=== PATIENT | female | born 1950 | race Caucasian/White ===

== ENCOUNTER 2017-11-11 17:55 | Emergency (ER) | payer OTHER ==
--- NOTE | 2017-11-11 18:15 | PDOC ---
History of Present Illness - General History Source: Patient Exam Limitations: No Limitations - History of Present Illness Initial Comments: 11/11/17 18:51 The patien is a 67 year old female with history of hypertension, arrythmias, on Metoprolol, who presents to the ED complaining of palpitations, generalized weakness, and nausea that began this evening while shoveling snow. No chest pain or shortness of breath. No vomiting or diaphoresis. 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) - Immunization History Td Vaccination: No (UNKNOWN) - Suicide/Smoking/Psychosocial Hx Smoking Status: No Smoking History: Never smoked Number of Cigarettes Smoked Daily: 0 Hx Alcohol Use: No Drug/Substance Use Hx: No Substance Use Type: None Hx Substance Use Treatment: No <Angelica Arambula - Last Filed: 11/11/17 23:47> - Past Medical History Allergies/Adverse Reactions: Allergies Allergy/AdvReac Type Severity Reaction Status Date / Time No Known Allergies Allergy Verified 11/11/17 18:22 Home Medications: Ambulatory Orders Metoprolol Succinate [Toprol XL] 50 mg PO BID 12/16/12 Review of Systems - Review of Systems Able to Perform ROS?: Yes Comments:: 11/11/17 18:54 GENERAL/CONSTITUTIONAL: +Generalized weakness. No fever or chills. HEAD, EYES, EARS, NOSE AND THROAT: No change in vision. No ear pain or discharge. No sore throat. GASTROINTESTINAL: +Nausea. No abdominal pain, vomiting, diarrhea or constipation. GENITOURINARY: No dysuria, frequency, or change in urination. CARDIOVASCULAR: +Palpitations. No chest pain or shortness of breath. RESPIRATORY: No cough, wheezing, or hemoptysis. MUSCULOSKELETAL: No joint or muscle swelling or pain. No neck or back pain. SKIN: No rash NEUROLOGIC: No headache, vertigo, loss of consciousness, or change in strength/ sensation. ENDOCRINE: No increased thirst. No abnormal weight change. HEMATOLOGIC/LYMPHATIC: No anemia, easy bleeding, or history of blood clots. ALLERGIC/IMMUNOLOGIC: No hives or skin allergy. <Tara Luke - Last Filed: 11/11/17 18:54> *Physical Exam - Vital Signs Last Vital Signs Temp Pulse Resp BP Pulse Ox 97.4 F L 57 L 18 150/88 99 11/11/17 18:22 11/11/17 18:22 11/11/17 18:22 11/11/17 18:22 11/11/17 18:22 - Physical Exam Comments: 11/11/17 18:56 Constitutional: Awake, alert, oriented. No acute distress. Head: Normocephalic. Atraumatic Eyes: PERRL. EOMI. Conjunctivae are not pale. ENT: Mucous membranes are moist and intact. Posterior pharynx without exudates or erythema. Uvula midline. Neck: Supple. Full ROM. No lymphadenopathy. Cardiovascular: +Arrhythmia. Distal pulses are 2+ and symmetric. Pulmonary/Chest: No evidence of respiratory distress. Clear to auscultation bilaterally No wheezing, rales or rhonchi. Abdominal: Soft and non-distended. There is no tenderness. No rebound, guarding or rigidity. No organomegaly. No palpable masses. Good bowel sounds. Back: No CVA tenderness. Musculoskeletal: No edema. No cyanosis. No clubbing. Full range of motion in all extremities. Nocalf tenderness. Radial/pedal pulses are intact and 2+ bilaterally Skin: Skin is warm and dry. No petechiae. No purpura. Neurological: Alert and oriented to person, place, and time. Cranial nerves II -XII are grossly intact. Normal speech. Strength is grossly symmetric. No sensory deficits. Psychiatric: Good eye contact. Normal interaction, affect and behavior. <Tara Luke - Last Filed: 11/11/17 18:54> Heart Score/ECG Review - ECG Intrepretation Comment:: 11/11/17 19:41 sinus arrhythmia at 79, nl axis, no acute st/t wave findings <Angelica Arambula - Last Filed: 11/11/17 23:47> ED Treatment Course - LABORATORY CBC & Chemistry Diagram: 11/11/17 18:34 11/11/17 18:34 <Tara Luke - Last Filed: 11/11/17 18:54> - LABORATORY CBC & Chemistry Diagram: 11/11/17 18:34 11/11/17 18:34 <Angelica Arambula - Last Filed: 11/11/17 23:47> Medical Decision Making - Medical Decision Making 11/11/17 19:10 a/p: 67yo female with palpitations -hx of arrhythmia that felt worse while shoveling snow -will check labs, electrolytes, tsh, cardiac enzymes x 2 -ekg -cxr -pt currently asymptomatic 11/11/17 21:13 pt feeling better no symptoms since earlier. will continue to monitor and reassess pt tolerated po intake in the ed 11/11/17 23:44 pt feeling at baseline. repeat trop negative tele has been sinus arrhythmia without acute findings will d/c to home to follow up with Dr. Wilkes <Angelica Arambula - Last Filed: 11/11/17 23:47> *DC/Admit/Observation/Transfer - Attestations Scribe Attestion: 11/11/17 18:57 Documentation prepared by Tara Luke, acting as ophthalmic medical assistant for Angelica Arambula DO. <Tara Luke - Last Filed: 11/11/17 18:54> - Discharge Dispostion Admit: No - Attestations Physician Attestion: 11/11/17 23:47 I, Dr. Angelica Arambula DO, attest that this document has been prepared under my direction and personally reviewed by me in its entirety. I further attest, that it accurately reflects all work, treatment, procedures and medical decision -making performed by me. <Angelica Arambula - Last Filed: 11/11/17 23:47> Diagnosis at time of Disposition: Palpitations - Discharge Dispostion Disposition: HOME Condition at time of disposition: Stable - Referrals Referrals: Harish Page MD [Primary Care Provider] - John Wilkes MD [Staff Physician] - - Patient Instructions Printed Discharge Instructions: DI for Palpitations, DI for Arrhythmias Additional Instructions: Please take all meds as prescribed. Please call your sponsorship manager in the morning to arrange for follow up. Please return to the ED with any further complaints. Please also follow up with your PMD. - Post Discharge Activity
[2017-11-11 18:26] VITALS: TEMP 97.4; BMI 19.7
[2017-11-11 18:48] LABS: BASO % 0.9 % (0-2.0); EOS % 5.3 % (0-4.5); HEMATOCRIT 37.4 % (32.4-45.2); HEMOGLOBIN 12.4 GM/dL (10.7-15.3); LYMPH % 26.7 % (8-40); MCH 30.8 pg (25.7-33.7); MCHC 33.2 g/dl (32.0-36.0); MEAN CELL VOLUME 92.7 fl (80-96); MEAN PLT VOLUME 8.6 fl (7.5-11.1); MONO % 7.5 % (3.8-10.2); NEUT % 59.6 % (42.8-82.8); PLATELET COUNT 245 K/MM3 (134-434); RBC 4.04 M/mm3 (3.60-5.2); RDW 12.7 % (11.6-15.6); WHITE BLOOD COUNT 5.7 K/mm3 (4.0-10.0)
[2017-11-11 19:03] LABS: INR 0.96 (0.82-1.09); PROTHROMBIN TIME (PATIENT) 10.9 SEC (9.98-11.88)
[2017-11-11 19:05] LABS: ACTIVATED PTT 29.1 SECONDS (26.9-34.4)
[2017-11-11 19:17] LABS: ALBUMIN 3.6 g/dl (3.4-5.0); ANION GAP 6 (8-16); BILIRUBIN,TOTAL 0.2 mg/dL (0.2-1.0); BLOOD UREA NITROGEN 17 mg/dL (7-18); CALCIUM 8.6 mg/dL (8.5-10.1); CHLORIDE 102 mmol/L (98-107); CO2 29 mmol/L (21-32); CREATININE 0.7 mg/dL (0.55-1.02); GLUCOSE,RANDOM 99 mg/dL (74-106); MAGNESIUM 2.5 mg/dL (1.8-2.4); SGOT/AST 22 U/L (15-37); SGPT/ALT 28 U/L (12-78); SODIUM 137 mmol/L (136-145); TOT PROT 7.3 g/dl (6.4-8.2)
[2017-11-11 19:20] LABS: ALK PHOS 84 U/L (45-117)
[2017-11-11 19:36] LABS: N-TERMINAL BNP 118.65 pg/ml (5-125)
[2017-11-11 21:38] VITALS: BP 128/63; PULSE 77
--- NOTE | 2017-11-12 10:26 | EKG ---
Test Reason : Blood Pressure : / mmHG Vent. Rate : 079 BPM Atrial Rate : 079 BPM P-R Int : 146 ms QRS Dur : 080 ms QT Int : 362 ms P-R-T Axes : 045 049 052 degrees QTc Int : 415 ms SINUS RHYTHM WITH MARKED SINUS ARRHYTHMIA WHEN COMPARED WITH ECG OF 12-APR-2013 11:43, NO SIGNIFICANT CHANGE WAS FOUND Confirmed by DOMINICK MOTTA MD ([id number]) on 11/12/2017 10:25:58 AM Referred By: Confirmed By:DOMINICK MOTTA MD
== END 2017-11-12 00:04 | disposition home or self-care (01) ==
LOC: JER 17:55
DX: I49.9 Cardiac arrhythmia, unspecified (principal); R00.2 Palpitations; I10 Essential (primary) hypertension
CPT/HCPCS: 36415; 71046-TC; 80053; 82550; 83735; 83880; 84439; 84443; 84484; 85025; 85610; 85730; 93005; 93010; 99284-25

== ENCOUNTER 2020-01-08 19:49 | Inpatient (IN) | payer OTHER, MEDICARE ==
--- NOTE | 2020-01-08 20:34 | PDOC ---
Documentation entered by Michelle Lara SCRIBE, acting as scribe for Christa Petersen MD. Christa Petersen MD: This documentation has been prepared by the Marco sheridan Xhesika, SCRIBE, under my direction and personally reviewed by me in its entirety. I confirm that the documentation accurately reflects all work, treatment, procedures, and medical decision making performed by me. History of Present Illness - General Chief Complaint: Chest Pain Stated Complaint: CHEST PAIN Time Seen by Provider: 01/08/20 19:58 History Source: Patient Exam Limitations: No Limitations - History of Present Illness Initial Comments: 01/08/20 20:24 The patient is a 69 y/o female with a PMH of htn, SVT, sinus arrhythmia, mvp, ablation 2 years ago who presents to the ED for intermittent L sided chest pain. The patient describes the pain as sharp, jabbing pain, lasting anywhere between a few seconds to 1-2 minutes, associated with hot flashes. Pt states her father from a OR at age 4747 years old. The patient denies any smoking history. PAST MEDICAL HISTORY: htn, SVT, sinus arrhythmia, mvp PAST SURGICAL HISTORY: no significant history FAMILY HISTORY: no pertinent history SOCIAL HISTORY: Pt lives with family and is employed. MEDICATIONS: reviewed ALLERGIES: As per nursing notes 01/08/20 20:32 Assessment and plan: This is a 69-year-old female with multiple cardiac risk factors including mitral valve prolapse hypertension, high cholesterol, strong family history who comes in complaining of intermittent left-sided chest pain with some questionable associated hot flash. Otherwise no associated symptoms. Patient said pain is brief is sharp and lasts less than 2 minutes. Patient does appear to be quite anxious however given her multiple risk factors and the fact she has not had a cardiac work-up in a year and a half last work-up was a cardiac cath in July 2018. Patient said cardiac cath showed less than 20% blockage of any vessels I will bring patient in to rule her out. Past History - Past Medical History Allergies/Adverse Reactions: Allergies Allergy/AdvReac Type Severity Reaction Status Date / Time No Known Allergies Allergy Verified 01/08/20 19:50 Home Medications: Ambulatory Orders Aspirin [Aspirin EC] 81 mg PO DAILY 01/08/20 Atorvastatin Ca [Lipitor] 40 mg PO HS 01/08/20 Cholecalciferol (Vitamin D3) [Vitamin D3] 1,000 unit PO DAILY 01/08/20 Hydrochlorothiazide [Hctz -] 25 mg PO DAILY 01/08/20 Metoprolol Tartrate [Lopressor] 100 mg PO HS 01/08/20 Olmesartan Medoxomil 20 mg PO DAILY 01/08/20 Ubidecarenone [Coq10] 100 mg PO DAILY 01/08/20 Cardiac Disorders: Yes (MVP, "cardiac arrhythemia") COPD: No Disorders: Yes (incontinence (post spinal surgery)) HTN: Yes Hypercholesterolemia: Yes - Surgical History Cardiac Surgery: Yes (Cath (May 2018), no stenting) Neurologic Surgery: Yes (Spinal tumor removed (1999)) Orthopedic Surgery: Yes (Right foot (screws/rods placed)) - Immunization History Td Vaccination: No (UNKNOWN) Immunization Up to Date: Yes - Psycho Social/Smoking Cessation Hx Smoking Status: No Smoking History: Never smoked Have you smoked in the past 12 months: No Number of Cigarettes Smoked Daily: 0 Hx Alcohol Use: No Drug/Substance Use Hx: No Substance Use Type: None Hx Substance Use Treatment: No Review of Systems - Review of Systems Able to Perform ROS?: Yes Comments:: 01/08/20 20:24 General: No fevers or chills, no weakness, no weight loss HEENT: No change in vision. No sore throat,. No ear pain CardioVascular: +L sided chest pain. No shortness of breath Respiratory:No cough, or wheezing. Gastrointestinal: no nausea, vomiting, diarrhea or constipation, No rectal bleeding Genitourinary: No dysuria, hematuria, or frequency Musculoskeletal: No joint or muscle pain or swelling Neurologic: No headache, vertigo, dizziness or loss of consciousness Psychiatric: nor depression Skin: No rashes or easy bruising Endocrine: no increased thirst or abnormal weight change Allergic: no skin or latex allergy All other systems reviewed and normal *Physical Exam - Vital Signs Last Vital Signs Temp Pulse Resp BP Pulse Ox 98.1 F 69 16 144/53 L 99 01/08/20 19:49 01/08/20 20:35 01/08/20 20:35 01/08/20 20:35 01/08/20 20:35 - Physical Exam 01/08/20 20:25 General: Well-nourished well-developed individual, no acute distress. +anxious appearing. HEENT: Throat: Normal, tonsils normal, no erythema or exudate Neck: Supple, no meningeal signs, no lymphadenopathy Eyes::Pupils equal reactive and round, extraocular motion intact Chest: +MVP murmur Cardiac: S1-S2 normal, regular rate and rhythm, no murmurs rubs or gallops Respiratory: Lungs clear to auscultation bilateral Abdomen: Soft, nondistended, normal bowel sounds, nontender to palpation diffusely Extremities: Warm, dry, no cyanosis, clubbing, or edema Skin: No rashes Neuro: Alert and oriented x3, nonfocal exam, grossly intact Psych: Normal mood and affect Heart Score/ECG Review - History History: Slightly suspicious - Electrocardiogram EKG: Normal - Age Age: >/= 65 - Risk Factors Based on the list above the patient has:: >/=3 risk factors or Hx atherosclerotic disease - Troponin Troponin: </= normal limit - Score Heart Score - Total: 4 ED Treatment Course - LABORATORY CBC & Chemistry Diagram: 01/08/20 20:25 01/08/20 20:25 - ADDITIONAL ORDERS Additional order review: Laboratory Results 01/08/20 01/08/20 20:25 20:25 Sodium 129 L Potassium 3.9 Chloride 91 L Carbon Dioxide 27 Anion Gap 11 BUN 26.0 H Creatinine 0.9 Est GFR (CKD-EPI)AfAm 76.14 Est GFR (CKD-EPI)NonAf 65.70 Random Glucose 137 H Calcium 9.4 Total Bilirubin 0.3 AST 26 ALT 20 Alkaline Phosphatase 90 Creatine Kinase 91 Troponin I < 0.03 Total Protein 7.1 Albumin 4.0 - RADIOLOGY Radiology Studies Ordered: Category Date Time Status CHEST X-RAY PORTABLE* [RAD] Stat Radiology 01/08/20 20:25 Taken Discharge - Discharge Information Problems reviewed: Yes Clinical Impression/Diagnosis: Chest pain Condition: Guarded Disposition: HOME - Admission Yes - Follow up/Referral Referrals: Tahir Nelson MD [Primary Care Provider] - - Patient Discharge Instructions - Post Discharge Activity
[2020-01-08 21:22] LABS: BILIRUBIN,TOTAL 0.3 mg/dl (0.2-1); CALCIUM 9.4 mg/dl (8.5-10); CREATININE 0.9 mg/dl (0.55-1.3); POTASSIUM 3.9 mmol/L (3.5-5.1); TOT PROT 7.1 g/dl (6.4-8.2)
[2020-01-08] MEDS ORDERED: ASPIRIN 325 MG TABLET PO ONE (22:10)
[2020-01-08] MEDS ORDERED: ASPIRIN 325 MG TABLET ONE (22:15)
[2020-01-08 22:16] LABS: BASO % 0.9 % (0-2.0); EOS % 7.2 % (0-4.5); HEMATOCRIT 35.1 % (32.4-45.2); HEMOGLOBIN 11.7 GM/dl (10.7-15.3); LYMPH % 34.9 % (8-40); MCH 30.7 pg (25.7-33.7); MCHC 33.4 g/dl (32.0-36.0); MEAN CELL VOLUME 91.8 fl (80-96); MEAN PLT VOLUME 9.6 fl (7.5-11.1); MONO % 7.9 % (3.8-10.2); NEUT % 49.1 % (42.8-82.8); PLATELET COUNT 203 K/MM3 (134-434); RBC 3.83 M/mm3 (3.60-5.2); RDW 12.4 % (11.6-15.6); WHITE BLOOD COUNT 6.4 K/mm3 (4.0-10.8)
[2020-01-08 22:17] LABS: ADD RBC MORPHOLOGY NO
--- NOTE | 2020-01-08 22:23 | HP ---
Admitting History and Physical - Primary Care Physician PCP: Tahir Nelson - Admission Chief Complaint: Chest Pain History of Present Illness: This is a 69 y/o female with a PMHx of HTN, SVT, Sinus Arrhythmia, MVP, s/p ablation (05/2018). Who presents to the ED with left sided chest pain. Patient describes the pain as sharp and jabbing, radiating to left axilla lasting between 1-2 minutes with associated hot flashes. Patient reports being at the [facility] office last Wednesday for elevated BP. Patient denies fever, chills , cough, BECKHAM, dizziness, SOB, AP, N/V/D. constipation. Patient has cardiac familial hx- father, [place]. ED course was noted for: (1) Chest Xray image- no infiltrate no effusion (2) EKG- NSR 64bpm, QT/QTc 398/410 (3) Troponin 0.03 (4) Na 129 History Source: Patient Limitations to Obtaining History: No Limitations - Past Medical History Cardiovascular: Yes: HTN, Mitral Insufficiency (MVP), Other (svt) - Past Surgical History Additional Past Surgical History: Cardiac Ablation - Smoking History Smoking history: Never smoked Have you smoked in the past 12 months: No Aproximately how many cigarettes per day: 0 - Alcohol/Substance Use Hx Alcohol Use: No History of Substance Use: reports: None - Social History Usual Living Arrangement: Yes: Other (Brother) ADL: Independent History of Recent Travel: No Home Medications - Allergies Allergies/Adverse Reactions: Allergies Allergy/AdvReac Type Severity Reaction Status Date / Time No Known Allergies Allergy Verified 01/08/20 19:50 - Home Medications Home Medications: Ambulatory Orders Aspirin [Aspirin EC] 81 mg PO DAILY 01/08/20 Atorvastatin Ca [Lipitor] 40 mg PO HS 01/08/20 Cholecalciferol (Vitamin D3) [Vitamin D3] 1,000 unit PO DAILY 01/08/20 Hydrochlorothiazide [Hctz -] 25 mg PO DAILY 01/08/20 Metoprolol Tartrate [Lopressor] 100 mg PO HS 01/08/20 Olmesartan Medoxomil 20 mg PO DAILY 01/08/20 Ubidecarenone [Coq10] 100 mg PO DAILY 01/08/20 Family Medical History Family Hx Coronary Artery Disease: Father ([place], age 47) Review of Systems - Review of Systems Constitutional: reports: No Symptoms Eyes: reports: No Symptoms HENT: reports: No Symptoms Neck: reports: No Symptoms Cardiovascular: reports: Chest Pain, Palpitations Respiratory: reports: No Symptoms Gastrointestinal: reports: No Symptoms Genitourinary: reports: No Symptoms Breasts: reports: No Symptoms Reported Integumentary: reports: No Symptoms Neurological: reports: No Symptoms Endocrine: reports: No Symptoms Hematology/Lymphatic: reports: No Symptoms Psychiatric: reports: Anxiety Pain Intensity: 4 Physical Examination Vital Signs: Vital Signs Temperature 98.1 F 01/08/20 19:49 Pulse Rate 68 01/08/20 22:18 Respiratory Rate 17 01/08/20 22:18 Blood Pressure 129/92 01/08/20 22:18 O2 Sat by Pulse Oximetry (%) 100 01/08/20 22:18 Constitutional: Yes: Anxious, Thin Eyes: Yes: WNL, Conjunctiva Clear, EOM Intact HENT: Yes: WNL, Atraumatic, Normocephalic Neck: Yes: WNL, Supple, Trachea Midline Cardiovascular: Yes: Regular Rate and Rhythm, Murmur, S1, S2 Respiratory: Yes: WNL, Regular, CTA Bilaterally Gastrointestinal: Yes: WNL, Normal Bowel Sounds, Soft ...Rectal Exam: Yes: Deferred Breast(s): Yes: WNL Musculoskeletal: Yes: WNL Edema: No Peripheral Pulses WNL: Yes Neurological: Yes: Alert, Oriented, Pre-Existing Deficit ...Motor Strength: LUE, RUE Psychiatric: Yes: WNL, Alert, Oriented Labs: CBC, BMP 01/08/20 20:25 01/08/20 20:25 Laboratory Results - last 24 hr 01/08/20 01/08/20 01/08/20 20:25 20:25 20:25 WBC 6.4 Corrected WBC (auto) 6.40 RBC 3.83 Hgb 11.7 Hct 35.1 MCV 91.8 MCH 30.7 MCHC 33.4 RDW 12.4 Plt Count 203 MPV 9.6 Absolute Neuts (auto) 3.2 Neutrophils % 49.1 Lymphocytes % 34.9 Monocytes % 7.9 Eosinophils % 7.2 H Basophils % 0.9 Sodium 129 L Potassium 3.9 Chloride 91 L Carbon Dioxide 27 Anion Gap 11 BUN 26.0 H Creatinine 0.9 Est GFR (CKD-EPI)AfAm 76.14 Est GFR (CKD-EPI)NonAf 65.70 Random Glucose 137 H Calcium 9.4 Total Bilirubin 0.3 AST 26 ALT 20 Alkaline Phosphatase 90 Creatine Kinase 91 Troponin I < 0.03 Total Protein 7.1 Albumin 4.0 Urine Color Urine Appearance Urine pH Ur Specific [place] Urine Protein Urine Glucose (UA) Urine Ketones Urine Blood Urine Nitrite Urine Bilirubin Urine Urobilinogen Ur Leukocyte Esterase Urine WBC (Auto) Urine RBC (Auto) Urine Casts (Auto) U Epithel Cells (Auto) Urine Bacteria (Auto) Intake & Output 01/06/20 01/07/20 01/08/20 01/09/20 23:59 23:59 23:59 23:59 Weight 52.277 kg Imaging - Results Chest X-ray: Image Reviewed EKG: Image Reviewed Problem List - Problems (1) Chest pain Assessment/Plan: r/o ACS HEART Score 4 MELISSA 3 Continue cardiac monitoring Serial Enzymes EKG reviewed Appreciate Cardiology consult Echo in am Continue Asa Code(s): R07.9 - CHEST PAIN, UNSPECIFIED (2) Hyponatremia Assessment/Plan: Likely secondary to medication vs dehydration vs SIADH NS fluids initiated in ED, will decrease to 42ml/hr Sodium Deficit 309.1 Monitor BMP Urine Osmo, Urine lytes, Na Spot, Serum Osmo Goal sodium correction of 6-8meq/24hrs Monitor vitals Consider Nephrology consult if no improvement Code(s): E87.1 - HYPO-OSMOLALITY AND HYPONATREMIA (3) HTN (hypertension) Assessment/Plan: sub optimal Monitor BP Continue home meds with parameters Monitor renal function Code(s): I10 - ESSENTIAL (PRIMARY) HYPERTENSION Assessment/Plan This is a 69 y/o female with a PMHx of HTN, SVT, Sinus Arrhythmia, MVP, s/p ablation (05/2018). Placed in Telemetry Observation for Chest Pain r/o ACS, Acute Hyponatremia for further evaluation of their emergent condition. Plan: See Problem List FEN NS@42ml/hr Replete lytes prn Low Na Diet DVT ppx OOB SCDs Heparin SQ Dispo: Observation Visit type - Emergency Visit Emergency Visit: Yes ED Registration Date: 01/08/20 Care time: The patient presented to the Emergency Department on the above date and was hospitalized for further evaluation of their emergent condition. - New Patient This patient is new to me today: Yes Date on this admission: 01/08/20 - Critical Care Critical Care patient: No
[2020-01-08] MEDS ORDERED: SODIUM CHLORIDE 1,000 ML IV SCH (23:00)
[2020-01-08 23:52] VITALS: BMI 19.8
[2020-01-09 01:09] LABS: EPI CELLS 0.1 /HPF (0-5/HPF); HYALINE CASTS 2 /lpf (0-8); PH,URINE 6.5 (5.0-8.0); URINE APPEARANCE TURBID; URINE BACTERIA 962.4 /hpf (NEGATIVE); URINE BILIRUBIN NEGATIVE (NEGATIVE); URINE COLOR YELLOW; URINE GLUCOSE (UA) NEGATIVE (NEGATIVE); URINE KETONE NEGATIVE (NEGATIVE); URINE LEUK ESTERASE 3+ (NEGATIVE); URINE NITRITE POSITIVE (NEGATIVE); URINE PROTEIN NEGATIVE (NEGATIVE); URINE RBC 13 /hpf (0-4); URINE UROBILINOGEN 0.2 mg/dL (0.2-1.0); URINE WBC 1039 /hpf (0-5)
[2020-01-09] MEDS ORDERED: CEFTRIAXONE 1 GM in DEXTROSE 5%-WATER - 50 ML IVPB ONE (02:41)
[2020-01-09] MEDS ORDERED: SODIUM CHLORIDE 1,000 ML IV SCH (03:00)
[2020-01-09] MEDS ORDERED: cefTRIAXone SODIUM 1 GM VIAL ONE (03:04)
[2020-01-09] MEDS ORDERED: DEXTROSE 5%-WATER - 50 ML IVPB ONE (03:05)
[2020-01-09 07:50] LABS: CALCIUM 9.2 mg/dl (8.5-10); CREATININE 0.8 mg/dl (0.55-1.3); MAGNESIUM 1.9 mg/dL (1.8-2.4); PHOSPHOROUS 3.6 mg/dl (2.5-4.9); POTASSIUM 4.4 mmol/L (3.5-5.1)
[2020-01-09 07:56] LABS: CHOLESTEROL 119 mg/dl (50-200); HDL CHOLESTEROL 50 mg/dl (40-60); LDL CHOLESTEROL (ONLY DFH) 58 mg/dl (5-100); TRIGLYCERIDES 54 mg/dl (0-150)
[2020-01-09] MEDS ORDERED: PATIENT'S OWN MEDICATION (NON-FORMULARY) (Olmesartan Medoxomil [Olmesartan Medoxomil] 20 M PO SCH (10:00)
[2020-01-09] MEDS: CHOLECALCIFEROL (VIT D3) 1,000 UNIT (25 MCG) TABLET PO SCH (10:00)
[2020-01-09] MEDS: HEPARIN NA (PORCINE) 5,000 UNITS/ML 1ML VIAL SQ SCH ×2 (10:00→21:13)
[2020-01-09] MEDS: ASPIRIN COATED 81 MG TABLET.EC PO SCH (10:00)
[2020-01-09] MEDS: VALSARTAN 160 MG TABLET (UD) PO SCH (10:05)
--- NOTE | 2020-01-09 10:35 | EKG ---
Test Reason : Blood Pressure : / mmHG Vent. Rate : 064 BPM Atrial Rate : 064 BPM P-R Int : 126 ms QRS Dur : 088 ms QT Int : 398 ms P-R-T Axes : 051 055 062 degrees QTc Int : 410 ms POOR DATA QUALITY, INTERPRETATION MAY BE ADVERSELY AFFECTED NORMAL SINUS RHYTHM NORMAL ECG WHEN COMPARED WITH ECG OF 30-JUN-2018 13:33, VENT. RATE HAS DECREASED BY 40 BPM QT HAS SHORTENED Confirmed by Finn Troy MD ([id number]) on 01/09/2020 10:35:00 AM Referred By: Confirmed By:Finn Troy MD
[2020-01-09 10:38] LABS: BASO % 0.7 % (0-2.0); EOS % 5.5 % (0-4.5); HEMATOCRIT 35.3 % (32.4-45.2); HEMOGLOBIN 11.9 GM/dL (10.7-15.3); LYMPH % 30.7 % (8-40); MCH 30.7 pg (25.7-33.7); MCHC 33.7 g/dl (32.0-36.0); MEAN CELL VOLUME 91.1 fl (80-96); MEAN PLT VOLUME 9.2 fl (7.5-11.1); MONO % 7.9 % (3.8-10.2); NEUT % 55.2 % (42.8-82.8); PLATELET COUNT 216 K/MM3 (134-434); RBC 3.87 M/mm3 (3.60-5.2); RDW 12.5 % (11.6-15.6); WHITE BLOOD COUNT 5.8 K/mm3 (4.0-10.0)
--- NOTE | 2020-01-09 14:11 | CONS ---
CARDIOLOGY CONSULTATION DATE OF CONSULTATION: DATE OF DICTATION: 01/09/2020 REQUESTED BY: Nurse practitioner/hospitalist. CHIEF COMPLAINT: Left lateral sharp, nonexertional chest pains. HISTORY: Patient is a 69-year-old white female of [place] decent with longstanding history of hypertension, hypertensive cardiovascular disease, dyslipidemia, supraventricular arrhythmia status post radiofrequency ablation, nonobstructive coronary artery disease. Ausculatatory findings compatible with mitral valve prolapse. History of a traumatic fracture of the right foot followed by chest pain syndrome and elevated troponins while she was admitted to [facility] and preoperatively had a stress test that apparently was negative. Patient also had undergone a cardiac catheterization on June 02, 2018, which revealed nonobstructive 20% lesion in the mid LAD and proximal circumflex and mid RCA. The patient started experiencing recurring left lateral sharp chest pain that were transient lasting seconds and extended to several minutes. They were nonpleuritic, nonradiating, and nonexertional. Symptoms started after she had her supper. In view of repeated episodes, which were also accompanied by hot flashes, she decided to come to the emergency room. Since admission, she has had no further symptoms. On questioning, patient has had these symptoms dating back to at least 20 years. Symptoms have occurred after eating certain food and at times associated with retrosternal burning sensation. They always have been nonexertional. There is no history of dyspnea either at rest or with exertion. No history of paroxysmal or nocturnal dyspnea or orthopnea. No history of recent palpitations, lightheadedness, dizziness, presyncope, or syncope reported. Patient states that she has periodic "queasy sensation" at the epigastrium and retrosternal area and states that she feels that her stomach is unsettled. This has been occurring for the past 1 week and has had it on several previous occasions also. The symptoms are usually relieved after eating breakfast. 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 This was later accompanied by loss of both urine and stool control. 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 PAST HISTORY: As mentioned in the history of present illness. SURGICAL HISTORY: 1. Status post surgery for spinal Schwannoma. 2. Status post radiofrequency ablation for SVT. 3. Surgery for traumatic fracture of the right foot. SOCIAL HISTORY: Single. Nonsmoker. Does not drink alcohol. Has 1 cup of coffee or tea. FAMILY HISTORY: Father at the age of 47 related to a myocardial infarction. Mother at the age of 87 due to urinary septicemia. She was diabetic. She has 1 brother who has bipolar disorder and attention deficit disorder. Has a nephew who has had supraventricular arrhythmias requiring radiofrequency ablation. ALLERGIES: None reported. MEDICATIONS: Prior to admission, the patient was on the following medications; metoprolol succinate 50 mg 2 tablets p.o. daily nightly, olmesartan 20 mg p.o. daily, atorvastatin 40 mg p.o. daily, aspirin 81 mg p.o. daily, Nitrostat 0.4 mg sublingually p.r.n. for chest discomfort, Co Q10 at 200 mg p.o. daily, hydrochlorothiazide 25 mg p.o. daily. REVIEW OF SYSTEMS: Constitutional: No history of chills, fever, or night sweats. No history of unintentional weight loss. HEENT: Recent history of frontal headaches and history of chronic sinusitis. No history of diplopia, blurred vision. No history of epistaxis, hoarseness, tinnitus, or deafness. Cardiovascular: See history of present illness. Respiratory: No history of cough, expectoration, or hemoptysis. No history of tuberculosis. Gastrointestinal: See history of present illness. No history of recent vomiting, abdominal pain, or discomfort. History of loss of sphincter control. Neurological: See history of present illness. Genitourinary: History of loss of sphincter control. Musculoskeletal: History of weakness and paresthesias involving both lower extremities. Endocrine: No history of polyuria or polydipsia. No history of intolerance to cold or warm weather. Hematological: No history of bleeding, ecchymosis, or anemia. PHYSICAL EXAMINATION: General: A 69-year-old female who is in no acute distress. No pallor, cyanosis, clubbing, or jaundice. Vital Signs: Blood pressure 134/55 mmHg, pulse 70 beats per minute and regular, respirations 20 per minute, oxygen saturation 99% on room air. Neck: Supple. No jugular venous distention. Carotids are 2+. Upstrokes are normal. No bruits are heard. No thyromegaly is present. Heart: PMI is in the 5th intercostal space. No heaves or thrills. S1, S2 are normal. Non ejection systolic clicks are heard along the left sternal border that move towards S1 with . There is a grade 1/6 apical systolic murmur. No diastolic murmur or gallops are heard. Lungs: Clear on auscultation. Chest: Normal AP diameter. Expansion is symmetrical. There is no localized tenderness on palpation. Abdomen: Soft. Slightly protuberant and nontender. No hepatosplenomegaly or palpable masses are felt. Bowel sounds are hyperactive. No bruits are heard. Extremities: No calf tenderness or dependent edema. There is a well-healed surgical scar involving the right ankle. Pulses are equal. ECG January 08, 2020; sinus rhythm with probable intra-atrial conduction abnormality. Slight axis deviation. Borderline voltage criteria for LVH (V1 and V6). Nonspecific ST changes. No previous ECG was available for comparison. X-ray chest January 08, 2020; impression: No acute chest pathology. LABORATORY DATA: CBC January 09, 2020; WBC 5800, hemoglobin 11.9 g/dL, hematocrit 35.3%, platelet count 216,000. Normal cell indices. Differential; neutrophils 55.2%, lymphocytes 30.7%, monocytes 7.9%, eosinophils 5.5%, basophils 0.7%. Chemistry: Sodium 131, potassium 4.4, chloride 97, CO2 is 28 mmol/L, BUN 20.0 mg/dL, creatinine 0.8 mg/dL. Random glucose 110. Calcium 9.2, phosphorous 3.6, magnesium 1.9 mg/dL. Troponin I 0.02 and less than 0.03. Total cholesterol 119, triglycerides 54, LDL cholesterol 58, HDL cholesterol 50 mg/dL. TSH was mildly elevated at 4.67. IMPRESSION: 1. Atypical chest pain syndrome, etiology to be determined. A. Gastroesophageal reflux disease. B. Related to mitral valve prolapse. C. Atypical angina pectoris cannot be excluded. 2. Nonobstructive coronary artery disease. 3. Hypercholesterolemia. 4. Hypertension, hypertensive cardiovascular disease. Currently normotensive. 5. Status post radiofrequency ablation for supraventricular tachycardia. 6. Status post fracture of the right ankle requiring surgical intervention. 7. History of arachnoiditis following surgery for spindle-cell Schwannoma. 8. Loss of sphincter control of the bladder and bowel associated with motor and sensory loss involving both lower extremities. RECOMMENDATIONS: 1. Consider trial with H2 xuan. 2. ECG during episode of chest discomfort. 3. Patient should avoid foods that would precipitate gastroesophageal reflux disease including chocolate, which she eats on a daily basis. 4. A trial with sublingual nitroglycerin during an episode of chest discomfort. 5. Continue current antihypertensive therapy. 6. If chest pains were to recur, consider a Lexiscan myocardial perfusion study. Thank you for your referral. Yours Sincerely, MARIANGEL MALDONADO M.D. [id number]
--- NOTE | 2020-01-09 16:59 | PN ---
Progress Note, Physician Chief Complaint: AWAKE ALERT EVENTS AND NOTES REVIEWED NO CHEST PAIN NO SOB TODAY LOSS OF SENSATION OF URINE FOR LONGSTANDING SINCE 20 YEARS AND NOT SURE ABOUT DYSUREA B/C OF NEUROPATHY POST SPINAL SHWANNOMA SURGERY RESECTION. - Current Medication List Current Medications: Active Medications Aspirin (Ecotrin -) 81 mg PO DAILY [facility] Atorvastatin Calcium (Lipitor -) 40 mg PO HS [facility] Cholecalciferol (Vitamin D3 -) 1,000 unit PO DAILY [facility] Heparin Sodium (Porcine) (Heparin -) 5,000 unit SQ BID [facility] Ceftriaxone Sodium 1 gm/ (Dextrose) 50 mls @ 200 mls/hr IVPB DAILY [facility]; Protocol Sodium Chloride (Normal Saline -) 1,000 mls @ 42 mls/hr IV ASDIR [facility] Last Admin: 01/09/20 03:07 Dose: 42 mls/hr Metoprolol Tartrate (Lopressor -) 100 mg PO HS [facility] Valsartan (Diovan -) 160 mg PO DAILY [facility] - Objective Vital Signs: Vital Signs Temperature 98.1 F 01/09/20 14:00 Pulse Rate 72 01/09/20 14:00 Respiratory Rate 16 01/09/20 14:00 Blood Pressure 120/64 01/09/20 14:00 O2 Sat by Pulse Oximetry (%) 100 01/09/20 14:00 Constitutional: Yes: Mild Distress Cardiovascular: Yes: Regular Rate and Rhythm Respiratory: Yes: WNL Gastrointestinal: Yes: WNL Genitourinary: Yes: Other Musculoskeletal: Yes: Other Edema: No Peripheral Pulses WNL: Yes Integumentary: Yes: WNL Wound/Incision: Yes: Clean/Dry Neurological: Yes: Loss of Sensation, Pre-Existing Deficit Psychiatric: Yes: WNL Labs: CBC, BMP 01/09/20 07:10 01/09/20 07:10 Problem List - Problems (1) UTI (urinary tract infection) Code(s): N39.0 - URINARY TRACT INFECTION, SITE NOT SPECIFIED (2) Chest pain Code(s): R07.9 - CHEST PAIN, UNSPECIFIED (3) HTN (hypertension) Code(s): I10 - ESSENTIAL (PRIMARY) HYPERTENSION (4) Hyponatremia Code(s): E87.1 - HYPO-OSMOLALITY AND HYPONATREMIA (5) Palpitations Code(s): R00.2 - PALPITATIONS Assessment/Plan IV ABX FOR UTI ON CEFTRIAXONE AWAIT CULTURES AND SENSITIVITY TELE NO ALARMS CARDIOLOGY EVAL APPRECIATED OOB TO CHAIR DVT PROPHYLAXIS FOLLOW NA+ LEVELS ON IVF
[2020-01-09] MEDS ORDERED: PATIENT'S OWN MEDICATION (NON-FORMULARY) (Metoprolol Tartrate [Lopressor] 100 MG) PO SCH (22:00)
[2020-01-09] MEDS ORDERED: ATORVASTATIN CA 40 MG TABLET (FP) PO SCH (22:00)
[2020-01-09] MEDS ORDERED: METOPROLOL TARTRATE 50 MG TABLET (FP) PO SCH (22:00)
--- NOTE | 2020-01-10 07:41 | DS ---
Physical Examination Vital Signs: Vital Signs Temperature 98.8 F 01/10/20 06:00 Pulse Rate 60 01/10/20 06:00 Respiratory Rate 18 01/10/20 06:00 Blood Pressure 116/52 L 01/10/20 06:00 O2 Sat by Pulse Oximetry (%) 100 01/10/20 06:00 Constitutional: Yes: No Distress Eyes: Yes: WNL HENT: Yes: WNL Neck: Yes: WNL Cardiovascular: Yes: WNL Respiratory: Yes: WNL Gastrointestinal: Yes: WNL Renal/: Yes: WNL Musculoskeletal: Yes: WNL Extremities: Yes: WNL Edema: No Peripheral Pulses WNL: Yes Integumentary: Yes: WNL Wound/Incision: Yes: Clean/Dry Neurological: Yes: WNL ...Motor Strength: WNL Psychiatric: Yes: WNL Labs: CBC, BMP 01/09/20 07:10 Discharge Summary Problems reviewed: Yes Reason For Visit: CHEST PAIN Current Active Problems Chest pain (Acute) HTN (hypertension) (Acute) Hyponatremia (Acute) UTI (urinary tract infection) (Acute) Procedures: Principal: EKG/TELE/URINE CX/LABS Hospital Course: ADMITTED CHEST PAIN/PALPITATIONS MONITORED ON TELEMETRY NO ALARMS, CARDIAC WORKUP NO ACUTE CHANGES, UTI TREATED IV ROCEPHIN, CAN DC HOME F/U WITH PMD IN 1 WEEK Plan of Treatment: CEFTIN BID 5 DAYS SEE YOUR PMD IN 1 WEEK Goals: SEE YOUR PMD IN 1 WEEK Condition: Improved - Instructions Diet, Activity, Other Instructions: SEE DR BONE IN 7 DAYS FOR FOLLOW UP CEFTIN 500MG BID FOR 5 DAYS FOR UTI TREATMENT F/U URINE CULTURES Referrals: Tahir Nelson MD [Primary Care Provider] - Disposition: HOME - Home Medications Comprehensive Discharge Medication List: Ambulatory Orders Aspirin [Aspirin EC] 81 mg PO DAILY 01/08/20 Atorvastatin Ca [Lipitor] 40 mg PO HS 01/08/20 Cholecalciferol (Vitamin D3) [Vitamin D3] 1,000 unit PO DAILY 01/08/20 Hydrochlorothiazide [Hctz -] 25 mg PO DAILY 01/08/20 Metoprolol Tartrate [Lopressor] 100 mg PO HS 01/08/20 Olmesartan Medoxomil 20 mg PO DAILY 01/08/20 Ubidecarenone [Coq10] 100 mg PO DAILY 01/08/20
[2020-01-10 07:42] LABS: CALCIUM 8.8 mg/dl (8.5-10); CREATININE 0.8 mg/dl (0.55-1.3); MAGNESIUM 1.9 mg/dL (1.8-2.4); POTASSIUM 4.4 mmol/L (3.5-5.1)
[2020-01-10] MEDS ORDERED: cefTRIAXone SODIUM 1 GM VIAL ONE (09:24)
[2020-01-10] MEDS ORDERED: DEXTROSE 5%-WATER - 50 ML IVPB ONE (09:24)
[2020-01-10] MEDS: CHOLECALCIFEROL (VIT D3) 1,000 UNIT (25 MCG) TABLET PO SCH (09:27)
[2020-01-10] MEDS: ASPIRIN COATED 81 MG TABLET.EC PO SCH (09:28)
[2020-01-10] MEDS: HEPARIN NA (PORCINE) 5,000 UNITS/ML 1ML VIAL SQ SCH (09:28)
[2020-01-10] MEDS: VALSARTAN 160 MG TABLET (UD) PO SCH (09:28)
[2020-01-10] MEDS ORDERED: CEFTRIAXONE 1 GM in DEXTROSE 5%-WATER - 50 ML IVPB SCH (10:00)
[2020-01-10 10:53] VITALS: BP 122/50; PULSE 72; TEMP 97.7
== END 2020-01-10 11:30 | disposition home or self-care (01) | DRG 690 ==
LOC: FER 19:49 → FM/S 22:32 → OBSVTOIN 01-09 06:24
PROVIDERS: ADMIT Family Medicine; ATTEND Family Medicine
DX: N39.0 Urinary tract infection, site not specified (principal); E87.1 Hypo-osmolality and hyponatremia; R07.89 Other chest pain; K21.9 Gastro-esophageal reflux disease without esophagitis; I34.1 Nonrheumatic mitral (valve) prolapse; I11.9 Hypertensive heart disease without heart failure; I25.119 Atherosclerotic heart disease of native coronary artery with unspecified angina pectoris; E78.5 Hyperlipidemia, unspecified; E78.00 Pure hypercholesterolemia, unspecified; Z98.890 Other specified postprocedural states
CPT/HCPCS: 36415; 71045-TC-FY; 80048; 80053; 80061; 81003; 82436; 82550; 83735; 83930; 83935; 84100; 84133; 84300; 84443; 84484; 85025; 87086; 93005; 99285-25; G0378; J1644; J7030

== ENCOUNTER 2021-08-25 14:53 | Emergency (ER) | payer OTHER, MEDICARE ==
[2021-08-25 14:59] VITALS: BP 174/69; PULSE 57; TEMP 98.3; BMI 18.8
== END 2021-08-25 15:40 | disposition home or self-care (01) ==
LOC: FER 14:53
DX: I10 Essential (primary) hypertension (principal)
CPT/HCPCS: 99281-25

== ENCOUNTER 2023-09-19 12:23 | Emergency (ER) | payer OTHER, MEDICARE ==
[2023-09-19 12:40] VITALS: BP 176/78; PULSE 68; RESP 18; TEMP 98.6; BMI 28.0
[2023-09-19] MEDS ORDERED: CEFTRIAXONE 1 GM in DEXTROSE 5%-WATER - 100 ML IVPB ONE (15:21)
[2023-09-19] MEDS ORDERED: CEFTRIAXONE 1 GM/50 ML BAG ONE (15:29)
[2023-09-19 15:39] LABS: BASO % 0.7 % (0-2.0); EOS % 3.3 % (0-4.5); HEMOGLOBIN 11.2 GM/dL (10.7-15.3); LYMPH % 18.7 % (8-40); MCH 30.4 pg (25.7-33.7); MCHC 33.8 g/dl (32.0-36.0); MEAN PLT VOLUME 8.1 fl (7.5-11.1); MONO % 5.9 % (3.8-10.2); NEUT % 71.4 % (42.8-82.8); PLATELET COUNT 333 10^3/uL (134-434); RBC 3.66 M/mm3 (3.60-5.2); RDW 14.1 % (11.6-15.6); WHITE BLOOD COUNT 8.7 K/mm3 (4.0-10.0)
[2023-09-19 15:54] LABS: POTASSIUM 3.9 mmol/L (3.5-5.1)
[2023-09-19 15:57] LABS: ALBUMIN 3.9 g/dl (3.4-5.0); CALCIUM 9.7 mg/dL (8.5-10.1)
[2023-09-19 15:58] LABS: BLOOD UREA NITROGEN 17.4 mg/dL (7-18)
[2023-09-19 16:00] LABS: CREATININE 0.7 mg/dL (0.55-1.3)
[2023-09-19 16:02] LABS: BILIRUBIN,TOTAL 0.6 mg/dL (0.2-1); TOT PROT 7.4 g/dl (6.4-8.2)
== END 2023-09-19 16:41 | disposition home or self-care (01) ==
LOC: JERFT 12:23 → JER 12:23 → JERFT 16:41
DX: R22.42 Localized swelling, mass and lump, left lower limb (principal); L03.818 Cellulitis of other sites; W19.XXXA Unspecified fall, initial encounter; W22.8XXA Striking against or struck by other objects, initial encounter
CPT/HCPCS: 36415; 73610-TC-LT-FY; 73630-TC-LT; 80053; 85025; 93971-TC; 99285-25